=== PATIENT | female | born 1950 | race Caucasian/White ===

== ENCOUNTER → 2016-10-02 | Outpatient (CLI) | payer OTHER | LOC: FIMAGING 15:46 | PROVIDERS: ATTEND Internal Medicine | DX: R14.0 Abdominal distension (gaseous) (principal); Z78.0 Asymptomatic menopausal state ==

== ENCOUNTER → 2016-10-19 | Outpatient (CLI) | payer OTHER | LOC: FIMAGING 16:00 | PROVIDERS: ATTEND Internal Medicine | DX: R05 Cough (principal); R68.83 Chills (without fever) ==

== ENCOUNTER → 2017-04-05 | Outpatient (CLI) | payer OTHER | LOC: CIMAGING 10:44 | PROVIDERS: ATTEND Internal Medicine | DX: Z12.31 Encounter for screening mammogram for malignant neoplasm of breast (principal) | CPT/HCPCS: G0202 ==

== ENCOUNTER → 2017-04-20 | Outpatient (CLI) | payer OTHER | LOC: BHFA 09:00 | PROVIDERS: ATTEND Internal Medicine Interventional Cardiology | DX: R06.02 Shortness of breath (principal); I10 Essential (primary) hypertension | CPT/HCPCS: 78452; 93017; A9500; J2785 ==

== ENCOUNTER 2017-06-02 09:43 | Day surgery (SDC) | payer OTHER ==
--- NOTE | 2017-06-02 10:03 | PDANEPAE ---
ANE History of Present Illness 66 year old female w/ PMHx of Obesity, low exercise tolerance, HTN, ELE, hypothyroidism, bipolar disorder and severe anxiety presents for bone biopsy. Patient very anxious in pre-op. Does not want anyone but best to start her IV. Anesthesiologist agreed to start IV with ultrasound guidance. ANE Past Medical History - Cardiovascular History Hx Hypertension: Yes Hx Arrhythmias: No Hx Chest Pain: No Hx Coronary Artery / Peripheral Vascular Disease: No Hx CHF / Valvular Disease: No Hx Palpitations: No Cardiovascular History Comment: pcp monitors bp medications - Pulmonary History Hx COPD: No Hx Asthma/Reactive Airway Disease: No Hx Recent Upper Respiratory Infection: No Hx Oxygen in Use at Home: No Hx Sleep Apnea: Yes Pulmonary History Comment: HX sleep apnea - Neurologic History Hx Cerebrovascular Accident: No Hx Seizures: No Hx Dementia: No - Endocrine History Hx Diabetes: No Hypothyroid: Yes Hyperthyroid: No Obesity: yes, severe Endocrine History Comment: hypothyroid-med - Renal History Hx Renal Disorders: No - Liver History Hx Hepatic Disorders: No - Neurological & Psychiatric Hx Hx Neurological and Psychiatric Disorders: Yes Neurological / Psychiatric History Comment: bipolar. severe anxiety. ECT therapy-last time 08/30 - Cancer History Hx Cancer: No - Congenital Disorder History Hx Congenital Disorders: No - GI History Hx Gastrointestinal Disorders: Yes Gastrointestinal History Comment: severe obesity-gastric bypass,failed. cee. recent heartburn - Other Health History Other Health History: gout-med. iron deficiant anemia in past - Chronic Pain History Chronic Pain: Yes - Surgical History Prior Surgeries: gastric bypass/cee 2000. umbilical hernia 1996. tonsils young child ANE Review of Systems Review of Systems: - Exercise capacity Exercise capacity: <4 METS METS (RN): 2 METS ANE Patient History - Allergies Allergies/Adverse Reactions: No Known Allergies Allergy (Verified 05/31/17 16:38) - Home Medications Home medications: home medication list seen and reviewed Home Medications: ALPRAZolam [Xanax 0.25 MG (RX)] 0.75 mg PO DAILY PRN 08/02/13 [Last Taken 08:00] Divalproex [Depakote 125 MG (RX)] tab PO BID 08/02/13 [Last Taken 08/03/13 08:00 ] Levothyroxine Sodium [Levoxyl] 200 mcg PO DAILY 08/02/13 [Last Taken 08/03/13 08 :00] Oak Carbonate 300 mg PO DAILY 08/02/13 [Last Taken 08/03/13 08:00] Losartan/Hydrochlorothiazide [Losartan-Hctz 100-12.5 Mg Tab] mg PO DAILY [Last Taken 08/03/13 08:00] QUEtiapine FUMARATE [Seroquel 300mg (RX)] 700 mg PO HS 08/02/13 [Last Taken 21:00] Furosemide 20 mg PO DAILY 05/12/16 [Last Taken Unknown] Herbals/Supplements -Info Only 1 tab PO DAILY 05/12/16 [Last Taken Unknown] Loperamide HCl 200 mg PO BID 05/12/16 [Last Taken Unknown] Potassium Chloride 10 meq PO DAILY 05/12/16 [Last Taken Unknown] - NPO status NPO Status: no food or drink >8 hours - Anes Hx Anes Hx: no prior problems - Smoking Hx Smoking Status: Never smoked - Alcohol Use Alcohol Use: None - Family Anes Hx Family Anes Hx: neg - N/A Family Hx Anesthesia Complications: no ANE Labs/Vital Signs - Vital Signs Vital Signs: reviewed preoperatively; see RN documention for details Height: 149.86 cm Weight: 102.058 kg ANE Physical Exam - Airway Neck exam: decreased ROM, increased neck circumference Mallampati Score: Class 3 Mouth exam: normal dental/mouth exam, abnormal chin - Pulmonary Pulmonary: no respiratory distress - Cardiovascular Cardiovascular: regular rate and rhythym - ASA Status ASA Status: III ANE Anesthesia Plan Anesthesia Plan: general endotracheal anesthesia Total IV Anesthesia: No
[2017-06-02] MEDS ORDERED: FLUMAZENIL 0.5 MG/5 ML MDV IVP PRN (10:17)
[2017-06-02] MEDS ORDERED: GLUCAGON HCL 1 MG VIAL IVP PRN (10:17)
[2017-06-02] MEDS ORDERED: PROTAMINE SULFATE 50 MG/5 ML VIAL IVP PRN (10:17)
[2017-06-02] MEDS ORDERED: fentaNYL 100 MCG/2 ML INJ IVP PRN ×2 (10:17→12:09)
[2017-06-02] MEDS ORDERED: NALOXONE HCL 0.4 MG/ML INJ IVP PRN ×2 (10:17→12:09)
[2017-06-02] MEDS ORDERED: HEPARIN 10,000 UNIT/10 ML MDV IVP PRN (10:17)
[2017-06-02] MEDS ORDERED: ALTEPLASE 2 MG VIAL IVP PRN (10:17)
[2017-06-02] MEDS ORDERED: MEPERIDINE 25 MG/ML SYR IVP PRN (10:17)
[2017-06-02] MEDS ORDERED: MIDAZOLAM 2 MG/2 ML VIAL IVP PRN (10:17)
[2017-06-02] MEDS ORDERED: NS 1,000 ML IV SCH (10:30)
--- NOTE | 2017-06-02 11:11 | PDGENHP ---
History & Physical Chief Complaint: ELEVATED WBC History of Present Illness: SEVERE ANEMIA Pertinent Past, Social, Family History: N/A. NO KNOWN CA HISTORY Relevant Physical Exam: ANXIOUS. Cardiorespiratory Assessment: RRR. CTA
[2017-06-02] MEDS ORDERED: MIDAZOLAM 2 MG/2 ML VIAL ONE (11:28)
[2017-06-02] MEDS ORDERED: MIDAZOLAM 2 MG/2 ML VIAL IVP ONE (11:32)
[2017-06-02] MEDS ORDERED: PROPOFOL/EMULSION 500 MG/50 ML BOTTLE IV ONE (11:40)
[2017-06-02] MEDS ORDERED: BUPIVACAINE 0.5% 30 ML SDV ONE (11:57)
[2017-06-02] MEDS ORDERED: ONDANSETRON 4 MG/2 ML VIAL IVP PRN (12:09)
[2017-06-02] MEDS ORDERED: OXYCODONE/APAP 5/325 TAB PO PRN (12:09)
[2017-06-02] MEDS ORDERED: LR 500 ML IV PRN (12:09)
[2017-06-02] MEDS ORDERED: ONDANSETRON 4 MG/2 ML VIAL ONE (12:10)
--- NOTE | 2017-06-02 12:45 | PDRADPN ---
Radiology Procedure Note Date of Procedure: 06/02/17 Radiologist: Jessica Boyd Anesthesia: GET(General Endotracheal) Pre-op Diagnosis: anemia Post-op Diagnosis: same Indication: need tissue Procedure: bone marrow biopsy and aspiration Finding(s): two cores and 20cc bm aspirate sent Inf/Abcess present in the surg proc area at time of surgery?: No EBL: Minimal Complications: none Specimen(s): 2 bone cores; 20cc bm aspirate
[2017-06-02 13:25] VITALS: TEMP 97.9
[2017-06-02 13:44] VITALS: RESP 14
[2017-06-02 14:59] VITALS: BP 120/86; PULSE 65; O2SAT 96
--- NOTE | 2017-06-02 15:05 | POSTANESTH ---
Post Anesthetic Evaluation Cardiovascular Status: Normal, Stable, Similar to Pre-Op Cond Respiratory Status: Normal, Stable, Similar to Pre-op Cond. Level of Consciousness/Mental Status: Can Participate in Eval, Alert and Oriented Pain Control: Adequate, Prn Tx Ordered Nausea/Vomiting Control: Adequate, Prn Tx Ordered Complications Possibly Related to Anesthesia: None Noted
[2017-06-04 13:14] LABS: FINAL DIAGNOSIS See Comments; MICROSCOPIC DESCRIPTION See Comments; SPECIAL STUDIES See Comments
[2017-06-09 12:31] LABS: BANDING METHODS See Comments
== END 2017-06-02 14:02 | disposition home or self-care (01) ==
LOC: FIMAGING 09:43
PROVIDERS: ATTEND Internal Medicine Hematology & Oncology
PROC: 07DR3ZX Extraction of Iliac Bone Marrow, Percutaneous Approach, Diagnostic (ICD-10-PCS; principal; 2017-06-02 11:00)
DX: D72.829 Elevated white blood cell count, unspecified (principal)
CPT/HCPCS: 85060-90; 88184-90; 88185-91; 88237-90; 88262-90; J2250; J2405; J2704

== ENCOUNTER → 2017-07-01 | Outpatient (CLI) | payer OTHER | LOC: CIMAGING 08:42 | PROVIDERS: ATTEND Internal Medicine Hematology & Oncology | DX: D64.9 Anemia, unspecified (principal) | CPT/HCPCS: 76705-PO ==

== ENCOUNTER → 2018-04-19 | Outpatient (CLI) | payer OTHER | LOC: BHLMT 09:15 | PROVIDERS: ATTEND Internal Medicine Cardiovascular Disease | DX: R06.02 Shortness of breath (principal); I10 Essential (primary) hypertension; G47.33 Obstructive sleep apnea (adult) (pediatric) | CPT/HCPCS: 93306-PO ==

== ENCOUNTER → 2018-04-28 | Outpatient (CLI) | payer OTHER | LOC: CIMAGING 12:19 | PROVIDERS: ATTEND Internal Medicine | DX: Z12.31 Encounter for screening mammogram for malignant neoplasm of breast (principal) ==

== ENCOUNTER → 2018-04-30 | Outpatient (CLI) | payer OTHER | LOC: FCPNEURO 20:00 | PROVIDERS: ATTEND Psychiatry & Neurology Sleep Medicine | DX: G47.33 Obstructive sleep apnea (adult) (pediatric) (principal) ==

== ENCOUNTER → 2018-07-26 | Outpatient (CLI) | payer OTHER | LOC: FIMAGING 10:33 | PROVIDERS: ATTEND Internal Medicine | DX: M89.9 Disorder of bone, unspecified (principal); M81.0 Age-related osteoporosis without current pathological fracture ==

== ENCOUNTER → 2018-12-07 | Outpatient (CLI) | payer OTHER | LOC: FIMAGING 13:56 | PROVIDERS: ATTEND Internal Medicine | DX: M79.602 Pain in left arm (principal); Z91.81 History of falling ==

== ENCOUNTER 2019-01-12 11:28 | Outpatient (CLI) | payer OTHER | END 2019-01-12 15:40 | disposition home or self-care (01) | LOC: FIMAGING 11:28 ==